=== PATIENT | male | born 1945 | race Caucasian/White ===

== ENCOUNTER 2016-10-26 10:00 | Emergency (ER) | payer OTHER ==
[2016-10-26 10:05] VITALS: RESP 16; TEMP 98.6
--- NOTE | 2016-10-26 10:21 | EDPHY ---
HPI/HX/ROS/PE/MDM Narrative: CHIEF COMPLAINT: Hematuria HPI: The patient is a 71 y/o male arriving with his family complaining of hematuria since Friday, 3 days ago. He flew in from [place] on Friday to visit family and first noticed blood in his urine that day. He reports his urine has ranged from "bright red" to "grape juice color" and is sometimes associated with clots. He denies difficulty voiding, dysuria, abdominal pain, or flank pain. He reports his baseline back pain is no worse than normal. He has no history of urology procedures or kidney stones. He normally takes a daily aspirin, but discontinued it when his symptoms started. He denies anticoagulant use. REVIEW OF SYSTEMS: Aside from elements discussed in the HPI, a comprehensive 10-point review of systems was reviewed and is negative. PMH: Hypertension, hyperglycemia, hypercholesteremia SOCIAL HISTORY: Family at bedside. [place]05[place]16 PHYSICAL EXAM: General:Patient is alert, in no acute distress. ENT:Eyes are normal to inspection. ENT inspection normal. Neck: Normal inspection. Full range of motion. Respiratory:No respiratory distress. Breath sounds normal bilaterally. Cardiovascular: Regular rate and rhythm. Strong peripheral pulses. Normal cap refill. Abdomen:The abdomen is nontender to palpation. There are no peritoneal signs. There are normal bowel sounds. Back: Normal to inspection. No tenderness to palpation. Skin: Normal color. No rash. Warm and dry. Extremities: Normal appearance. Full range of motion. Neuro: Oriented x3. Normal motor function. Normal sensory function. ED Course: IV established. Labs drawn including CBC, CHEM. UA ordered. Plan for abdominal CT. Study: CT of the Abdomen/pelvis Indication: Hematuria Results: CT scan of the abdomen was obtained. The results of the study are no kidney stone, clot in blader. The study was read by the radiologist, Dr. Bullard. I viewed the images myself on the PACS system. Urine only shows elevated RBCs. BGL is 223, but labs are otherwise unremarkable. I discussed work up with the patient and answered all his questions. I recommended follow up with a urologist in the next few days and sooner if his symptoms worsen. He agrees with this plan. Return precautions given. MDM: This patient presents with asymptomatic painless hematuria. His workup is negative for kidney stones or trauma, and there are no signs of renal failure or anemia. Currently the patient has no difficulty urinating and his bladder is decompressed on CT. The patient understands that he is at risk of urinary retention which would necessitate return to the ED. I think he would benefit from Urology evaluation and have referred him to our local Urologist, but patient will likely fly home to see one at home. Urine appears pure blood only , and in the absence of infectious symptoms, I do not think antibiotics are indicated. We will send urine for culture. - Data Points Laboratory Results: Laboratory Results 10/26/16 10:25 10/26/16 10:25 10/26/16 10/26/16 10/26/16 10:25 10:25 10:10 WBC 8.15 10^3/uL 10^3/uL (3.80-9.50) RBC 5.23 10^6/uL 10^6/uL (4.40-6.38) Hgb 14.8 g/dL g/dL (13.7-17.5) Hct 44.1 % % (40.0-51.0) MCV 84.3 fL fL (81.5-99.8) MCH 28.3 pg pg (27.9-34.1) MCHC 33.6 g/dL g/dL (32.4-36.7) RDW 13.1 % % (11.5-15.2) Plt Count 286 10^3/uL 10^3/uL (150-400) MPV 10.0 fL fL (8.7-11.7) Neut % (Auto) 67.7 % % (39.3-74.2) Lymph % (Auto) 22.8 % % (15.0-45.0) [place] % (Auto) 7.0 % % (4.5-13.0) Eos % (Auto) 1.3 % % (0.6-7.6) Baso % (Auto) 0.5 % % (0.3-1.7) Nucleat RBC Rel Count 0.0 % % (0.0-0.2) Absolute Neuts (auto) 5.51 10^3/uL 10^3/uL (1.70-6.50) Absolute Lymphs (auto) 1.86 10^3/uL 10^3/uL (1.00-3.00) Absolute Monos (auto) 0.57 10^3/uL 10^3/uL (0.30-0.80) Absolute Eos (auto) 0.11 10^3/uL 10^3/uL (0.03-0.40) Absolute Basos (auto) 0.04 10^3/uL 10^3/uL (0.02-0.10) Absolute Nucleated RBC 0.00 10^3/uL 10^3/uL (0-0.01) Immature Gran % 0.7 % % (0.0-1.1) Immature Gran # 0.06 10^3/uL 10^3/uL (0.00-0.10) Sodium 140 mEq/L mEq/L (134-144) Potassium 4.2 mEq/L mEq/L (3.5-5.2) Chloride 100 mEq/L mEq/L (97-110) Carbon Dioxide 26 mEq/l mEq/l (22-31) Anion Gap 14 mEq/L mEq/L (8-16) BUN 18 mg/dL mg/dL (7-23) Creatinine 0.9 mg/dL mg/dL (0.7-1.3) Estimated GFR > 60 Glucose 223 mg/dL H mg/dL (70-100) Calcium 9.6 mg/dL mg/dL (8.5-10.4) Urine Color RED Urine Appearance TURBID Urine pH TNP Ur Specific [place] TNP Urine Protein TNP Urine Ketones TNP Urine Blood TNP Urine Nitrate TNP Urine Bilirubin TNP Urine Urobilinogen TNP Ur Leukocyte Esterase TNP Urine RBC 50-182 /hpf H /hpf (0-3) Urine WBC Not Reported Ur Epithelial Cells NONE SEEN /lpf /lpf (NONE-1+) Ur Culture Indicated? NOT INDICATED (NI) Urine Glucose TNP General Time Seen by Provider: 10/26/16 10:01 Initial Vital Signs: Initial Vital Signs Temperature (C) 37 C 10/26/16 10:03 Heart Rate 77 10/26/16 10:03 Respiratory Rate 16 10/26/16 10:03 Blood Pressure 146/76 H 10/26/16 10:03 O2 Sat (%) 95 10/26/16 10:03 O2 Delivery Mode Room Air Allergies/Adverse Reactions: No Known Allergies Allergy (Unverified 10/26/16 10:02) Home Medications: Medication Instructions Recorded Aspirin 81mg (*) 10/26/16 Atorvastatin Calcium 10/26/16 Lisinopril 10/26/16 Metformin HCl 10/26/16 Departure - Departure Disposition: Home, Routine, Self-Care Clinical Impression: Hematuria Condition: Good Instructions: Hematuria (ED) Additional Instructions: Please follow up with a urologist in the next week. You've been referred to Dr. Alberto locally, but you can also see a urologist upon your return home. You need to follow up sooner if you develop pain, inability to urinate, or other worsening of condition. Referrals: FRANDY MCKENNA MD [Other] - As per Instructions Andrea Alberto MD [Medical Doctor] - As per Instructions Report Scribed for: Frandy Mckeon Report Scribed by: Patsy Hinds Date of Report: 10/26/16 Time of Report: 10:21 Physician Review and Approval Statement: Portions of this note were transcribed by an ED scribe. I personally performed the history, physical exam, and medical decision making; and confirm the accuracy of the information in the transcribed note.
[2016-10-26 10:29] LABS: COLOR RED
[2016-10-26 10:31] LABS: % IMMATURE GRANULYOCYTES 0.7 % (0.0-1.1); ABSOLUTE IMMATURE GRANULOCYTES 0.06 10^3/uL (0.00-0.10); ADD DIFF? NO; ADD MORPH? NO; ADD SCAN? NO; ATYPICAL LYMPHOCYTE FLAG 0 (0-99); FRAGMENT RBC FLAG 0 (0-99); HEMATOCRIT 44.1 % (40.0-51.0); HEMOGLOBIN 14.8 g/dL (13.7-17.5); LEFT SHIFT FLG 0 (0-99); LIPEMIA HEMOLYSIS FLAG 80 (0-99); MEAN CELL HEMOGLOBIN 28.3 pg (27.9-34.1); MEAN CELL HEMOGLOBIN CONCENTR. 33.6 g/dL (32.4-36.7); MEAN CELL VOLUME 84.3 fL (81.5-99.8); PLATELET CLUMPS FLAG 0 (0-99); PLATELET COUNT 286 10^3/uL (150-400); RED BLOOD CELL COUNT 5.23 10^6/uL (4.40-6.38); RED CELL DISTRIBUTION WIDTH 13.1 % (11.5-15.2)
[2016-10-26 10:44] LABS: RBC,URINE 50-182 /hpf (0-3)
[2016-10-26 10:50] LABS: ANION GAP 14 mEq/L (8-16); CALCIUM 9.6 mg/dL (8.5-10.4); CARBON DIOXIDE 26 mEq/l (22-31); CHLORIDE 100 mEq/L (97-110); CREATININE 0.9 mg/dL (0.7-1.3); GLOMERULAR FILTRATION RATE > 60; GLUCOSE 223 mg/dL (70-100); POTASSIUM 4.2 mEq/L (3.5-5.2); SODIUM 140 mEq/L (134-144)
[2016-10-26 11:10] VITALS: BP 142/70; PULSE 74; O2SAT 94
== END 2016-10-26 11:10 | disposition home or self-care (01) ==
DX: R31.9 Hematuria, unspecified (principal); I10 Essential (primary) hypertension; Z79.82 Long term (current) use of aspirin

== ENCOUNTER 2016-10-27 13:08 | Emergency (ER) | payer OTHER ==
[2016-10-27 13:14] VITALS: BP 155/72; PULSE 86; RESP 18; TEMP 98.2; O2SAT 92
--- NOTE | 2016-10-27 14:28 | EDPHY ---
H & P Time Seen by Provider: 10/27/16 13:22 HPI/ROS: CHIEF COMPLAINT: Hematuria HISTORY OF PRESENT ILLNESS: 71-year-old male presents to the emergency department with painless hematuria. The symptoms started just a few days ago. He was seen in the emergency department yesterday and had a CT scan of the abdomen and pelvis which revealed thickened bladder wall. He is scheduled see a urologist back in his [place] on Friday, in 2 days. Patient denies abdominal pain or flank pain. He tells me that he has had ongoing symptoms with an urge to urinate and then he will go to the bathroom and just passed a large clot followed by small amount of urine. This continued most of the night. He feels that it has gotten a bit better today. He denies chest pain or difficulty breathing. Denies any reported trauma. He was concerned that maybe he should have a Moss catheter placed since he is traveling back to [place] via plane tomorrow. REVIEW OF SYSTEMS: Constitutional: No fever, no chills. Eyes: No double or blurry vision. ENT: No sore throat. Respiratory: No cough, no shortness of breath. Cardiac: No chest pain. Gastrointestinal: No abdominal pain, vomiting or diarrhea. Genitourinary: No dysuria. Musculoskeletal: No neck or back pain. Skin: No rashes. Neurological: No headache. Past Medical/Surgical History: Hypertension, borderline diabetic Social History: from [place] Smoking Status: Never smoked Physical Exam: General Appearance: Alert, no distress. Family at bedside. Eyes: Pupils equal and round. Extraocular motions are all intact. ENT: Mouth: Mucous membranes moist. Respiratory: No wheezing, rhonchi, or rales, lungs are clear to auscultation. Cardiovascular: Regular rate and rhythm. Gastrointestinal: Abdomen is obese and soft and nontender, no masses, no rebound or guarding, bowel sounds normal. No CVA tenderness bilaterally. Neurological: Alert and oriented x 3, cranial nerves II through XII grossly intact Skin: Warm and dry, no rashes. Musculoskeletal: Nontender to palpate along the cervical, thoracic or lumbar spine. Neck is supple. Extremities: Full range of motion and no peripheral edema. Psychiatric: Patient is oriented X 3, there is no agitation. Constitutional: Initial Vital Signs Temperature (C) 36.8 C 03/26/17 13:11 Heart Rate 86 10/27/16 13:11 Respiratory Rate 18 10/27/16 13:11 Blood Pressure 155/72 H 10/27/16 13:11 O2 Sat (%) 92 10/27/16 13:11 O2 Delivery Mode Room Air Allergies/Adverse Reactions: No Known Allergies Allergy (Unverified 10/26/16 10:02) Home Medications: Medication Instructions Recorded Atorvastatin Calcium 10/26/16 Lisinopril 10/26/16 Metformin HCl 10/26/16 Medical Decision Making ED Course/Re-evaluation: 71-year-old male presents with persisting hematuria. He is scheduled to see urologist in 2 days in [place]. He is planning on flying home tomorrow. Patient does not describe any symptoms of urinary tract infection. He has painless hematuria. The patient will likely need a cystoscopy and biopsy. I discuss the pros and cons of using Moss catheter. I feel that if the patient is currently passing large clots, I feel that his Moss catheter will likely become clotted as well. He understands that the Moss catheter is a rigid tube and may be clotted more easily than having urinate on his own. The patient declined a Moss catheter. I encouraged him to return to the emergency department if he develops the urge to urinate and that is unable to do so. Also encouraged him to return if he developed back pain, abdominal pain , fever, or if he seems worse in any way. He was comfortable with this plan. Differential Diagnosis: Including but not limited to bladder cancer, kidney stone, urinary tract infection, pyelonephritis Departure - Departure Disposition: Home, Routine, Self-Care Clinical Impression: Hematuria Condition: Good Instructions: Hematuria (ED) Additional Instructions: Keep scheduled follow-up appointment with your urologist on Friday. Return to the emergency department if you decide that you would like to have a Moss catheter placed. Return to the emergency department also if you have an urge to urinate and unable to urinate. Referrals: Andrea Alberto MD [Medical Doctor] - As per Instructions (Urologist on-call)
== END 2016-10-27 14:35 | disposition home or self-care (01) ==
DX: R31.9 Hematuria, unspecified (principal); I10 Essential (primary) hypertension